=== PATIENT | female | born 1960 | race Caucasian/White ===

== ENCOUNTER 2023-06-08 11:41 | Outpatient (REF) | payer BC, SELFPAY ==
[2023-06-08 12:27] LABS: MANUAL DIFF FLAG NO
[2023-06-08 12:37] LABS: Basophils Percent Auto 0.3 % (0-2); Eosinophils Absolute Auto 0.4 X10*3/uL (0.0-0.4); Eosinophils Percent Auto 3.9 % (0-4); Hematocrit 27.9 % (37.0-47.0); Hemoglobin 8.1 g/dl (12.0-16.0); Imm Gran Abs Auto 0.04 X10*3/uL (0.00-0.03); Imm Gran Pct Auto 0.4 % (0.0-0.4); Lymphocytes Absolute Auto 0.9 X10*3/uL (1.2-4.9); Lymphocytes Percent Auto 9.9 % (20-40); Mean Corpuscular Hemoglobin 22.1 pg (27.0-33.0); Mean Platelet Volume 8.7 fL (9.4-12.3); Monocytes Absolute Auto 0.5 X10*3/uL (0.1-1.2); Neutrophils Absolute Auto 7.6 x10*3/uL (2.0-8.3); Neutrophils Percent Auto 80.5 % (45-73); Platelet Count 403 X10*3/uL (160-400); Red Blood Count 3.67 X10*6/uL (4.20-5.50); Red Cell Distribution Width 17.8 % (11.0-16.0); White Blood Count 9.5 X10*3/uL (4.8-10.8)
[2023-06-08 13:32] LABS: Parathyroid Hormone Intact < 4.0 pg/mL (8.7-77.1)
[2023-06-08 13:33] LABS: Anion Gap 14 (12-20); Blood Urea Nitrogen 41 mg/dL (9-16); Calcium 10.4 mg/dL (8.4-10.2); Carbon Dioxide 29 mmol/L (22-29); Chloride 102 mmol/L (96-108); Estimated Glomerular Filt Rate 17; Iron 35 mcg/dL (30-160); Percent Iron Saturation 15 % (15-50); Phosphorus 4.1 mg/dL (2.7-4.5); Potassium 4.5 mmol/L (3.3-5.1); Sodium 140 mmol/L (135-145); Total Iron Binding Capacity 237 mcg/dL (228-428); Unsaturated Iron Binding 202 ug/dL
[2023-06-08 13:41] LABS: Vitamin D 25-OH Total 33.6 ng/mL (>30)
== END 2023-06-08 11:42 | disposition home or self-care (01) ==
LOC: HO.HKASLDS 11:41
PROVIDERS: Visit Provider Internal Medicine Nephrology
DX: N18.4 Chronic kidney disease, stage 4 (severe) (principal)
CPT/HCPCS: 36415; 80051; 82306; 82310; 82565; 83540; 83970; 84100; 84520; 85025

== ENCOUNTER 2023-06-10 10:42 | Outpatient (AMB) | payer BC, SELFPAY ==
[2023-06-10 11:14] VITALS: BP 130/70; PULSE 87; O2SAT 96; BMI 39.9
--- NOTE | 2023-06-10 11:14 | HO.NEPHOV ---
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 She is still closely followed up by endocrinology. She denies any uremic symptoms. She denies any chest pain, shortness of breath, paroxysmal nocturnal dyspnea, orthopnea, pedal edema, hematuria, orthostatic symptoms, nausea, vomiting, diarrhea. Her appetite is good. Her weights have been stable. She avoids nonsteroidal anti-inflammatory medications and maintain good hydration. Her blood pressure has been at goal. She has a functioning AV fistula. [facility] Medical History (Updated 06/10/23 @ 11:46 by Bryan Green MD) AVF (arteriovenous fistula) Hypertension CKD (chronic kidney disease) stage 4, GFR 15-29 ml/min Surgical History (Updated 06/10/23 @ 11:20 by Andria Kay MA) History of thyroidectomy Family History (Updated 06/10/23 @ 11:20 by Andria Kay MA) Mother COPD (chronic obstructive pulmonary disease) Social History (Updated 06/10/23 @ 11:21 by Andria Kay MA) Alcohol intake: current Comment: Socially Patient Tobacco Use Status: Former Tobacco user Physical Exam Vital Signs: Last Vital Signs Pulse 87 06/10/23 11:14 BP 130/70 06/10/23 11:14 Pulse Ox 96 06/10/23 11:14 Oxygen Delivery Method Room Air 06/10/23 11:14 BMI result Body Mass Index 39.9 Const General: comfortable and no acute distress Orientation/consciousness: patient oriented x3 HEENT Head: Yes normocephalic Mouth: Normal oral and palatal mucosa present Eyes EOM: EOMs intact bilaterally Neck Neck: Yes supple Resp Auscultation: clear to auscultation bilaterally Cardio Jugular venous distension: no JVD Rate: regular rate GI Palpation (GI): Soft to palpation Auscultation: normal bowel sounds General: Yes no CVA tenderness Back/Spine/Pelvis Back: no CVA tenderness Skin General skin exam: no rashes or lesions noted Neuro General: patient oriented x3 and moves all extremities Extrem General: Yes no pedal edema Results Reviewed Nephrology Results: Hgb 8.1 g/dl (12.0-16.0) L 06/08/23 WBC 9.5 X10*3/uL (4.8-10.8) 06/08/23 Plt Count 403 X10*3/uL (160-400) H 06/08/23 Sodium 140 mmol/L (135-145) 06/08/23 Potassium 4.5 mmol/L (3.3-5.1) 06/08/23 Chloride 102 mmol/L (96-108) 06/08/23 Carbon Dioxide 29 mmol/L (22-29) 06/08/23 BUN 41 mg/dL (9-16) H 06/08/23 Creatinine 2.79 mg/dL (0.5-1.4) H 06/08/23 Calcium 10.4 mg/dL (8.4-10.2) H 06/08/23 Phosphorus 4.1 mg/dL (2.7-4.5) 06/08/23 PTH Intact < 4.0 pg/mL (8.7-77.1) L 06/08/23 Assessment & Plan Assessment & Plan (1) CKD (chronic kidney disease) stage 4, GFR 15-29 ml/min: Code(s): N18.4 - Chronic kidney disease, stage 4 (severe) Category: Medical (2) Anemia in chronic kidney disease (CKD): Code(s): N18.9 - Chronic kidney disease, unspecified; D63.1 - Anemia in chronic kidney disease Category: Medical Qualifiers: Chronic kidney disease stage: stage 4 (severe) Qualified Code(s): N18.4 - Chronic kidney disease, stage 4 (severe); D63.1 - Anemia in chronic kidney disease (3) Iron deficiency: Code(s): E61.1 - Iron deficiency Category: Medical Plan Carmelina has advanced chronic kidney disease at baseline for a long time. Her renal functions are currently stable. She does not have any uremic symptoms. Her blood pressure has been at goal. Her volume status is optimal. She has a functioning AV fistula. She has anemia of chronic kidney disease. She will be a candidate for intravenous iron and or Procrit based on evolving data. She could cut back on her calcium and vitamin-D. She is on statins. Her metabolic acidosis is well controlled on oral sodium bicarbonate, dose of which could be adjusted based on repeat blood work. I did not make any other medication changes today. Follow-up blood work ordered. Answered all questions. Orders: Orders IRON PROFILE 6 Weeks E61.1 - Iron deficiency, N18.4 - Chronic kidney disease, stage 4 (severe), D63.1 - Anemia in chronic kidney disease Complete Blood Count Auto Diff 6 Weeks E61.1 - Iron deficiency, N18.4 - Chronic kidney disease, stage 4 (severe), D63.1 - Anemia in chronic kidney disease Electrolytes 6 Weeks E61.1 - Iron deficiency, N18.4 - Chronic kidney disease, stage 4 (severe), D63.1 - Anemia in chronic kidney disease Creatinine 6 Weeks E61.1 - Iron deficiency, N18.4 - Chronic kidney disease, stage 4 (severe), D63.1 - Anemia in chronic kidney disease Blood Urea Nitrogen 6 Weeks E61.1 - Iron deficiency, N18.4 - Chronic kidney disease, stage 4 (severe), D63.1 - Anemia in chronic kidney disease Calcium 6 Weeks E61.1 - Iron deficiency, N18.4 - Chronic kidney disease, stage 4 (severe), D63.1 - Anemia in chronic kidney disease Coding Level of Care Code Est Pt Level 4 (34687) Diagnoses CKD (chronic kidney disease) stage 4, GFR 15-29 ml/min N18.4 Anemia in stage 4 chronic kidney disease N18.4; D63.1 Chronic kidney disease stage: stage 4 (severe) Iron deficiency E61.1
== END 2023-06-10 11:57 | disposition home or self-care (01) ==
PROVIDERS: PCP Pediatrics; Visit Provider Internal Medicine Nephrology
DX: N18.4 Chronic kidney disease, stage 4 (severe) (principal); D63.1 Anemia in chronic kidney disease; E61.1 Iron deficiency
CPT/HCPCS: 99214

== ENCOUNTER → 2023-06-10 10:42 | Outpatient (BNVA) | payer BC, SELFPAY | PROVIDERS: PCP Pediatrics; Visit Provider Internal Medicine Nephrology ==

== ENCOUNTER 2023-09-13 09:48 | Outpatient (REF) | payer BC, SELFPAY ==
[2023-09-13 11:12] LABS: MANUAL DIFF FLAG NO
[2023-09-13 11:16] LABS: Basophils Absolute Auto 0.1 X10*3/uL (0.0-0.2); Basophils Percent Auto 0.6 % (0-2); Eosinophils Absolute Auto 0.7 X10*3/uL (0.0-0.4); Eosinophils Percent Auto 8.3 % (0-4); Hematocrit 28.2 % (37.0-47.0); Hemoglobin 8.2 g/dl (12.0-16.0); Imm Gran Abs Auto 0.03 X10*3/uL (0.00-0.03); Imm Gran Pct Auto 0.4 % (0.0-0.4); Lymphocytes Absolute Auto 1.2 X10*3/uL (1.2-4.9); Lymphocytes Percent Auto 15.3 % (20-40); Mean Corpuscular HGB Conc 29.1 g/dl (31.0-35.0); Mean Corpuscular Hemoglobin 22.3 pg (27.0-33.0); Mean Corpuscular Volume 76.8 fL (80.0-98.0); Mean Platelet Volume 8.9 fL (9.4-12.3); Monocytes Absolute Auto 0.5 X10*3/uL (0.1-1.2); Monocytes Percent Auto 6.3 % (2-11); Neutrophils Absolute Auto 5.5 x10*3/uL (2.0-8.3); Neutrophils Percent Auto 69.1 % (45-73); Platelet Count 332 X10*3/uL (160-400); Red Blood Count 3.67 X10*6/uL (4.20-5.50); Red Cell Distribution Width 17.1 % (11.0-16.0); White Blood Count 7.9 X10*3/uL (4.8-10.8)
[2023-09-13 11:43] LABS: Anion Gap 14 (12-20); Blood Urea Nitrogen 40 mg/dL (9-16); Calcium 8.9 mg/dL (8.4-10.2); Carbon Dioxide 27 mmol/L (22-29); Chloride 105 mmol/L (96-108); Estimated Glomerular Filt Rate 16; Iron 20 mcg/dL (30-160); Percent Iron Saturation 8 % (15-50); Potassium 4.4 mmol/L (3.3-5.1); Sodium 142 mmol/L (135-145); Total Iron Binding Capacity 250 mcg/dL (228-428); Unsaturated Iron Binding 230 ug/dL
== END 2023-09-13 09:49 | disposition home or self-care (01) ==
LOC: HO.WFDLDS 09:48
PROVIDERS: Visit Provider Internal Medicine Nephrology
DX: E61.1 Iron deficiency (principal); N18.4 Chronic kidney disease, stage 4 (severe); D63.1 Anemia in chronic kidney disease
CPT/HCPCS: 36415; 80051; 82310; 82565; 83540; 84520; 85025

== ENCOUNTER 2023-09-16 10:51 | Outpatient (AMB) | payer BC, SELFPAY ==
[2023-09-16 10:57] VITALS: BP 130/64; PULSE 85; O2SAT 95; BMI 39.9
--- NOTE | 2023-09-16 10:57 | HO.NEPHOV_ITS ---
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 She is still closely followed up by endocrinology. She denies any uremic symptoms. She denies any chest pain, shortness of breath, paroxysmal nocturnal dyspnea, orthopnea, pedal edema, hematuria, orthostatic symptoms, nausea, vomiting, diarrhea. Her appetite is good. Her weights have been stable. She avoids nonsteroidal anti-inflammatory medications and maintain good hydration. Her blood pressure has been at goal. She has a functioning AV fistula. [facility] Medical History (Updated 06/10/23 @ 11:46 by Bryan Green MD) AVF (arteriovenous fistula) Hypertension CKD (chronic kidney disease) stage 4, GFR 15-29 ml/min Surgical History History of thyroidectomy Family History Mother COPD (chronic obstructive pulmonary disease) Social History Alcohol intake: current Comment: Socially Patient Tobacco Use Status: Former Tobacco user Review of Systems Const All systems reviewed & are unremarkable except as noted in HPI and below Physical Exam Vital Signs: Last Vital Signs Pulse 85 09/16/23 10:57 BP 130/64 09/16/23 10:57 Pulse Ox 95 09/16/23 10:57 Oxygen Delivery Method Room Air 09/16/23 10:57 BMI result Body Mass Index 39.9 Const General: comfortable and no acute distress Orientation/consciousness: patient oriented x3 HEENT Head: Yes normocephalic Mouth: Normal oral and palatal mucosa present Eyes EOM: EOMs intact bilaterally Neck Neck: Yes supple Resp Auscultation: clear to auscultation bilaterally Cardio Jugular venous distension: no JVD Rate: regular rate GI Palpation (GI): Soft to palpation Auscultation: normal bowel sounds General: Yes no CVA tenderness Back/Spine/Pelvis Back: no CVA tenderness Skin General skin exam: no rashes or lesions noted Neuro General: patient oriented x3 and moves all extremities Extrem General: Yes no pedal edema Results Reviewed Nephrology Results: Hgb 8.2 g/dl (12.0-16.0) L 09/13/23 WBC 7.9 X10*3/uL (4.8-10.8) 09/13/23 Plt Count 332 X10*3/uL (160-400) 09/13/23 Sodium 142 mmol/L (135-145) 09/13/23 Potassium 4.4 mmol/L (3.3-5.1) 09/13/23 Chloride 105 mmol/L (96-108) 09/13/23 Carbon Dioxide 27 mmol/L (22-29) 09/13/23 BUN 40 mg/dL (9-16) H 09/13/23 Creatinine 2.95 mg/dL (0.5-1.4) H 09/13/23 Calcium 8.9 mg/dL (8.4-10.2) 09/13/23 Phosphorus 4.1 mg/dL (2.7-4.5) 06/08/23 PTH Intact < 4.0 pg/mL (8.7-77.1) L 06/08/23 Assessment & Plan Assessment & Plan (1) CKD (chronic kidney disease) stage 4, GFR 15-29 ml/min: Code(s): N18.4 - Chronic kidney disease, stage 4 (severe) Category: Medical (2) Anemia in chronic kidney disease (CKD): Code(s): N18.9 - Chronic kidney disease, unspecified; D63.1 - Anemia in chronic kidney disease Category: Medical Qualifiers: Chronic kidney disease stage: stage 4 (severe) Qualified Code(s): N18.4 - Chronic kidney disease, stage 4 (severe); D63.1 - Anemia in chronic kidney disease (3) Iron deficiency: Code(s): E61.1 - Iron deficiency Category: Medical Plan Carmelina has advanced chronic kidney disease at baseline for a long time. Her renal functions are currently stable. She does not have any uremic symptoms. Her blood pressure has been at goal. Her volume status is optimal. She has a functioning AV fistula. She has anemia of chronic kidney disease. She will be a candidate for intravenous iron and or Procrit based on evolving data. She is on statins. Her metabolic acidosis is well controlled on oral sodium bicarbonate, dose of which could be adjusted based on repeat blood work. I did not make any other medication changes today. Follow-up blood work ordered. Answered all questions. Orders: Orders Complete Blood Count Auto Diff 3 Months D63.1 - Anemia in chronic kidney disease, E61.1 - Iron deficiency, N18.4 - Chronic kidney disease, stage 4 (severe) Creatinine Today D63.1 - Anemia in chronic kidney disease, E61.1 - Iron deficiency, N18.4 - Chronic kidney disease, stage 4 (severe) Blood Urea Nitrogen Today D63.1 - Anemia in chronic kidney disease, E61.1 - Iron deficiency, N18.4 - Chronic kidney disease, stage 4 (severe) Electrolytes Today D63.1 - Anemia in chronic kidney disease, E61.1 - Iron deficiency, N18.4 - Chronic kidney disease, stage 4 (severe) Coding Level of Care Code Est Pt Level 4 (93023) Diagnoses CKD (chronic kidney disease) stage 4, GFR 15-29 ml/min N18.4 Anemia in stage 4 chronic kidney disease N18.4; D63.1 Chronic kidney disease stage: stage 4 (severe) Iron deficiency E61.1
== END 2023-09-16 11:34 | disposition home or self-care (01) ==
PROVIDERS: PCP Pediatrics; Visit Provider Internal Medicine Nephrology
DX: N18.4 Chronic kidney disease, stage 4 (severe) (principal); D63.1 Anemia in chronic kidney disease; E61.1 Iron deficiency
CPT/HCPCS: 99214

== ENCOUNTER → 2023-09-16 10:51 | Outpatient (BNVA) | payer BC, SELFPAY | PROVIDERS: PCP Pediatrics; Visit Provider Internal Medicine Nephrology ==

== ENCOUNTER 2023-12-07 11:46 | Outpatient (REF) | payer BC, SELFPAY ==
[2023-12-07 14:08] LABS: MANUAL DIFF FLAG NO
[2023-12-07 14:18] LABS: Basophils Absolute Auto 0.1 X10*3/uL (0.0-0.2); Basophils Percent Auto 0.8 % (0-2); Eosinophils Absolute Auto 1.2 X10*3/uL (0.0-0.4); Eosinophils Percent Auto 13.5 % (0-4); Hematocrit 27.3 % (37.0-47.0); Hemoglobin 7.7 g/dl (12.0-16.0); Imm Gran Abs Auto 0.03 X10*3/uL (0.00-0.03); Imm Gran Pct Auto 0.3 % (0.0-0.4); Lymphocytes Absolute Auto 1.2 X10*3/uL (1.2-4.9); Lymphocytes Percent Auto 13.1 % (20-40); Mean Corpuscular HGB Conc 28.2 g/dl (31.0-35.0); Mean Corpuscular Hemoglobin 20.9 pg (27.0-33.0); Mean Corpuscular Volume 74.2 fL (80.0-98.0); Monocytes Absolute Auto 0.5 X10*3/uL (0.1-1.2); Monocytes Percent Auto 5.9 % (2-11); Neutrophils Percent Auto 66.4 % (45-73); Platelet Count 334 X10*3/uL (160-400); Red Blood Count 3.68 X10*6/uL (4.20-5.50); Red Cell Distribution Width 20.2 % (11.0-16.0)
== END 2023-12-07 11:47 | disposition home or self-care (01) ==
LOC: HO.WFDLDS 11:46
PROVIDERS: Visit Provider Internal Medicine Nephrology
DX: E61.1 Iron deficiency (principal); N18.4 Chronic kidney disease, stage 4 (severe); D63.1 Anemia in chronic kidney disease
CPT/HCPCS: 36415; 85025

== ENCOUNTER 2023-12-09 09:24 | Outpatient (AMB) | payer BC, SELFPAY ==
--- NOTE | 2023-12-09 09:37 | HO.NEPHOV ---
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 She is still closely followed up by endocrinology. She denies any uremic symptoms. She denies any chest pain, shortness of breath, paroxysmal nocturnal dyspnea, orthopnea, pedal edema, hematuria, orthostatic symptoms, nausea, vomiting, diarrhea. Her appetite is good. Her weights have been stable. She avoids nonsteroidal anti-inflammatory medications and maintain good hydration. Her blood pressure has been at goal. She has a functioning AV fistula. She has not had any iron infusions as ordered [facility] Medical History (Updated 06/10/23 @ 11:46 by Bryan Green MD) AVF (arteriovenous fistula) Hypertension CKD (chronic kidney disease) stage 4, GFR 15-29 ml/min Surgical History History of thyroidectomy Family History Mother COPD (chronic obstructive pulmonary disease) Social History Alcohol intake: current Comment: Socially Patient Tobacco Use Status: Former Tobacco user Review of Systems Const All systems reviewed & are unremarkable except as noted in HPI and below Physical Exam Const Other: Pale General: comfortable and no acute distress Orientation/consciousness: patient oriented x3 HEENT Head: Yes normocephalic Mouth: Normal oral and palatal mucosa present Eyes EOM: EOMs intact bilaterally Neck Neck: Yes supple Resp Auscultation: clear to auscultation bilaterally Cardio Jugular venous distension: no JVD Rate: regular rate Heart sounds: Murmur heart sound present GI Palpation (GI): Soft to palpation Auscultation: normal bowel sounds General: Yes no CVA tenderness Back/Spine/Pelvis Back: no CVA tenderness Skin General skin exam: no rashes or lesions noted Neuro General: patient oriented x3 and moves all extremities Extrem Other: AVF General: Yes no pedal edema Results Reviewed Nephrology Results: Hgb 7.7 g/dl (12.0-16.0) L 12/07/23 WBC 9.0 X10*3/uL (4.8-10.8) 12/07/23 Plt Count 334 X10*3/uL (160-400) 12/07/23 Sodium 142 mmol/L (135-145) 09/13/23 Potassium 4.4 mmol/L (3.3-5.1) 09/13/23 Chloride 105 mmol/L (96-108) 09/13/23 Carbon Dioxide 27 mmol/L (22-29) 09/13/23 BUN 40 mg/dL (9-16) H 09/13/23 Creatinine 2.95 mg/dL (0.5-1.4) H 09/13/23 Calcium 8.9 mg/dL (8.4-10.2) 09/13/23 Phosphorus 4.1 mg/dL (2.7-4.5) 06/08/23 PTH Intact < 4.0 pg/mL (8.7-77.1) L 06/08/23 Assessment & Plan Assessment & Plan (1) CKD (chronic kidney disease) stage 4, GFR 15-29 ml/min: Code(s): N18.4 - Chronic kidney disease, stage 4 (severe) Category: Medical (2) Anemia in chronic kidney disease (CKD): Code(s): N18.9 - Chronic kidney disease, unspecified; D63.1 - Anemia in chronic kidney disease Category: Medical Qualifiers: Chronic kidney disease stage: stage 4 (severe) Qualified Code(s): N18.4 - Chronic kidney disease, stage 4 (severe); D63.1 - Anemia in chronic kidney disease (3) Iron deficiency: Code(s): E61.1 - Iron deficiency Category: Medical Plan Carmelina has advanced chronic kidney disease at baseline for a long time. Her renal functions are currently stable. She does not have any uremic symptoms. Her blood pressure has been at goal. Her volume status is optimal. She has a functioning AV fistula. She has anemia of chronic kidney disease. She will be a candidate for intravenous iron and or Procrit based on evolving data. She is on statins. Her metabolic acidosis is well controlled on oral sodium bicarbonate. I reduced it to 650 mg daily. I did not make any other medication changes today. Follow-up blood work ordered. Answered all questions Orders: Orders Blood Urea Nitrogen 3 Months D63.1 - Anemia in chronic kidney disease, E61.1 - Iron deficiency, N18.4 - Chronic kidney disease, stage 4 (severe) Electrolytes 3 Months D63.1 - Anemia in chronic kidney disease, E61.1 - Iron deficiency, N18.4 - Chronic kidney disease, stage 4 (severe) Complete Blood Count Auto Diff 3 Months D63.1 - Anemia in chronic kidney disease, E61.1 - Iron deficiency, N18.4 - Chronic kidney disease, stage 4 (severe) IRON PROFILE 3 Months D63.1 - Anemia in chronic kidney disease, E61.1 - Iron deficiency, N18.4 - Chronic kidney disease, stage 4 (severe) Creatinine 3 Months D63.1 - Anemia in chronic kidney disease, E61.1 - Iron deficiency, N18.4 - Chronic kidney disease, stage 4 (severe) Calcium 3 Months D63.1 - Anemia in chronic kidney disease, E61.1 - Iron deficiency, N18.4 - Chronic kidney disease, stage 4 (severe) Ferritin 3 Months D63.1 - Anemia in chronic kidney disease, E61.1 - Iron deficiency, N18.4 - Chronic kidney disease, stage 4 (severe) Coding Level of Care Code Est Pt Level 4 (99750) Diagnoses CKD (chronic kidney disease) stage 4, GFR 15-29 ml/min N18.4 Anemia in stage 4 chronic kidney disease N18.4; D63.1 Chronic kidney disease stage: stage 4 (severe) Iron deficiency E61.1
[2023-12-09 09:38] VITALS: BP 134/60; PULSE 87; O2SAT 97; BMI 40.7
== END 2023-12-09 09:59 | disposition home or self-care (01) ==
PROVIDERS: PCP Pediatrics; Visit Provider Internal Medicine Nephrology
DX: N18.4 Chronic kidney disease, stage 4 (severe) (principal); D63.1 Anemia in chronic kidney disease; E61.1 Iron deficiency
CPT/HCPCS: 99214

== ENCOUNTER → 2023-12-09 09:24 | Outpatient (BNVA) | payer BC, SELFPAY | PROVIDERS: PCP Pediatrics; Visit Provider Internal Medicine Nephrology ==

== ENCOUNTER 2024-02-01 07:30 | Outpatient (RCR) | payer BC, SELFPAY ==
[2024-01-04 07:33] VITALS: BP 139/61; PULSE 78; RESP 14; TEMP 36.4; O2SAT 97
[2024-01-04] MEDS: Iron Sucrose Complex 200 MG/10 ML VIAL IVPUSH (07:45)
[2024-01-04] MEDS: 0.9 % Sodium Chloride Flush 10 ML SYRINGE 5 ML IVFLUSH (07:56)
[2024-01-11 07:23] VITALS: BP 157/62; PULSE 79; RESP 16; TEMP 36.8; O2SAT 94
[2024-01-11] MEDS: Iron Sucrose Complex 200 MG/10 ML VIAL IVPUSH (07:30)
[2024-01-18 07:28] VITALS: BP 151/61; PULSE 77; RESP 18; TEMP 36.4; O2SAT 97
[2024-01-18] MEDS: Iron Sucrose Complex 200 MG/10 ML VIAL IVPUSH (07:36)
[2024-01-25 08:08] VITALS: BP 139/43; PULSE 72; RESP 18; TEMP 36.2
[2024-01-25] MEDS: Iron Sucrose Complex 200 MG/10 ML VIAL IVPUSH (08:21)
[2024-02-01 07:41] VITALS: BP 129/61; PULSE 63; RESP 14; TEMP 37.2; O2SAT 98
[2024-02-01] MEDS: Iron Sucrose Complex 200 MG/10 ML VIAL IVPUSH (07:52)
[2024-02-01] MEDS: 0.9 % Sodium Chloride Flush 10 ML SYRINGE 5 ML IVFLUSH (07:59)
== END 2024-02-01 08:05 | disposition home or self-care (01) ==
LOC: HO.INF 07:30
PROVIDERS: PCP Pediatrics; Visit Provider Internal Medicine Nephrology
DX: E61.1 Iron deficiency (principal)
CPT/HCPCS: 96374; J1756

== ENCOUNTER 2024-04-18 14:22 | Outpatient (REF) | payer BC, SELFPAY ==
--- OUTSIDE RECORDS SUMMARY | 2024-04-18 15:56 | XMS_ITS | Clinical Summary ---
Author Organization [facility] it Address [address] [place] [address] Care Team Providers Care [employer] Open Stack Administrator Name Role Phone Dony Biggs MD Primary Care Provider [phone] Allergies Active Allergy Reactions Criticality Noted Date [...] Site/Laterality Comments OTHER SURGICAL HISTORY 1984 PROCEDURE: [place] DILATION & CURETTAGE DX&/THER NONOBSTETRIC Medical History Medical History Date Comments CKD (chronic kidney disease) stage 4, GFR 15-29 ml/min (CMS/HCC) 04/14/2018 DX:CKD (chronic kidney dise ase) stage 4, GFR 15-29 ml/min ([facility]) Vitamin D deficiency 08/29/2020 DX:Vitamin D deficiency Thyroid cancer, medullary ca rcinoma ([facility]/HCC) 11/06/2020 DX:Thyroid cancer, medullary carcinoma (HCC) Family [...] AM EDT Office Visit Adult Medicine - [place] [address] [place] [address] Dony Biggs MD [address] [place] [address] Health Maintenance Due Date Last Done Comments [...] Breast cancer risk category Low (<15%) Result [facility] Dony Biggs MD IMG XR PROCEDURES Final Result * Colonoscopy (10/15/2020) [facility] Colonoscopy no interpretation , abstracted Anatomical Region Laterality Modality Other Result [facility] Historical Provider HEALTH MAINTENANCE Final Result * Lipid panel (09/27/2020) [facility] LDL/HDL Ratio 2 0 - 4 Triglycerides 130 0 - 150 mg/dL Cholesterol 138 0 - 200 mg/dL HDL 70 >=40 mg/dL LDL Cholesterol 42 0 - 100 mg/dL Blood Venous blood specimen / Unknown Result [facility] Historical Provider LAB BLOOD ORDERABLES Gely l Result * Cervical Cancer Screening: HPV (08/04/2018) [facility] Cervical Cancer Screening: HPV abstracted, negative Result [facility] Historical Provider HEALTH MAINTENANCE Final Result from Last 3 Months or Most Recently Relevant to Health Maintenance Care Teams [employer] Open Stack Administrator Relationship Specialty Start Date End Date Dony Biggs MD [address] [place] [id number] PCP - General Internal Medicine 09/12/20
--- OUTSIDE RECORDS SUMMARY | 2024-04-18 15:56 | XMS_ITS | Clinical Summary ---
Author Organization [facility] Address [address] [place] [address] Phone Care Team Providers Care Doctor Of Podiatry Name Role Phone Babar Biggs MD Primary [...] patient's age to complete this topic [place] [address] Care Teams Doctor Of Podiatry Relationship Specialty Start Date End Date Babar Biggs MD PCP - General Internal Medicine 12/03/20
[2024-04-18 17:45] LABS: MANUAL DIFF FLAG NO
[2024-04-18 17:56] LABS: Basophils Percent Auto 0.3 % (0-2); Eosinophils Absolute Auto 0.5 X10*3/uL (0.0-0.4); Eosinophils Percent Auto 5.7 % (0-4); Hematocrit 33.7 % (37.0-47.0); Hemoglobin 10.2 g/dl (12.0-16.0); Imm Gran Abs Auto 0.06 X10*3/uL (0.00-0.03); Imm Gran Pct Auto 0.6 % (0.0-0.4); Lymphocytes Absolute Auto 1.5 X10*3/uL (1.2-4.9); Lymphocytes Percent Auto 15.5 % (20-40); Mean Corpuscular HGB Conc 30.3 g/dl (31.0-35.0); Mean Corpuscular Volume 79.3 fL (80.0-98.0); Monocytes Absolute Auto 0.6 X10*3/uL (0.1-1.2); Monocytes Percent Auto 6.8 % (2-11); Neutrophils Absolute Auto 6.7 x10*3/uL (2.0-8.3); Neutrophils Percent Auto 71.1 % (45-73); Platelet Count 288 X10*3/uL (160-400); Red Blood Count 4.25 X10*6/uL (4.20-5.50); Red Cell Distribution Width 17.7 % (11.0-16.0); White Blood Count 9.5 X10*3/uL (4.8-10.8)
[2024-04-18 18:22] LABS: Anion Gap 14 (12-20); Blood Urea Nitrogen 38 mg/dL (9-16); Calcium 8.8 mg/dL (8.4-10.2); Carbon Dioxide 23 mmol/L (22-29); Chloride 109 mmol/L (96-108); Estimated Glomerular Filt Rate 19; Iron 29 mcg/dL (30-160); Percent Iron Saturation 14 % (15-50); Potassium 4.9 mmol/L (3.3-5.1); Sodium 141 mmol/L (135-145); Total Iron Binding Capacity 214 mcg/dL (228-428); Unsaturated Iron Binding 185 ug/dL
[2024-04-18 18:26] LABS: Parathyroid Hormone Intact 22.6 pg/mL (8.7-77.1)
[2024-04-18 18:31] LABS: Ferritin 166 ng/mL (10-250)
== END 2024-04-18 14:23 | disposition home or self-care (01) ==
LOC: HO.HKASLDS 14:22
PROVIDERS: PCP Pediatrics; Visit Provider Internal Medicine Nephrology
DX: E87.20 Acidosis, unspecified (principal); E61.1 Iron deficiency; N18.4 Chronic kidney disease, stage 4 (severe); D63.1 Anemia in chronic kidney disease
CPT/HCPCS: 36415; 80051; 82306; 82310; 82565; 82728; 83540; 83970; 84520; 85025

== ENCOUNTER 2024-04-18 14:22 | Outpatient (AMB) | payer BC, SELFPAY ==
--- NOTE | 2024-04-18 14:36 | HO.NEPHOV ---
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 She is still closely followed up by endocrinology. She denies any uremic symptoms. She denies any chest pain, shortness of breath, paroxysmal nocturnal dyspnea, orthopnea, pedal edema, hematuria, orthostatic symptoms, nausea, vomiting, diarrhea. Her appetite is good. Her weights have been stable. She avoids nonsteroidal anti-inflammatory medications and maintain good hydration. Her blood pressure has been at goal. She has a functioning AV fistula. She has not had any iron infusions as ordered [facility] Medical History (Updated 04/18/24 @ 14:47 by Bryan Green MD) AVF (arteriovenous fistula) Hypertension CKD (chronic kidney disease) stage 4, GFR 15-29 ml/min Surgical History History of thyroidectomy Family History Mother COPD (chronic obstructive pulmonary disease) Social History Alcohol intake: current Comment: Socially Patient Tobacco Use Status: Former Tobacco user Review of Systems Const All systems reviewed & are unremarkable except as noted in HPI and below Physical Exam Vital Signs: Last Vital Signs Pulse 75 04/18/24 14:38 BP 134/72 04/18/24 14:38 Pulse Ox 97 04/18/24 14:38 Oxygen Delivery Method Room Air 04/18/24 14:38 BMI result Body Mass Index 41.8 Const General: comfortable and no acute distress Orientation/consciousness: patient oriented x3 HEENT Head: Yes normocephalic Mouth: Normal oral and palatal mucosa present Eyes EOM: EOMs intact bilaterally Neck Neck: Yes supple Resp Auscultation: clear to auscultation bilaterally Cardio Jugular venous distension: no JVD Rate: regular rate GI Palpation (GI): Soft to palpation Auscultation: normal bowel sounds General: Yes no CVA tenderness Back/Spine/Pelvis Back: no CVA tenderness Skin General skin exam: no rashes or lesions noted Neuro General: patient oriented x3 and moves all extremities Extrem General: Yes no pedal edema Results Reviewed Nephrology Results: Hgb 7.7 g/dl (12.0-16.0) L 12/07/23 WBC 9.0 X10*3/uL (4.8-10.8) 12/07/23 Plt Count 334 X10*3/uL (160-400) 12/07/23 Sodium 142 mmol/L (135-145) 09/13/23 Potassium 4.4 mmol/L (3.3-5.1) 09/13/23 Chloride 105 mmol/L (96-108) 09/13/23 Carbon Dioxide 27 mmol/L (22-29) 09/13/23 BUN 40 mg/dL (9-16) H 09/13/23 Creatinine 2.95 mg/dL (0.5-1.4) H 09/13/23 Calcium 8.9 mg/dL (8.4-10.2) 09/13/23 Phosphorus 4.1 mg/dL (2.7-4.5) 06/08/23 PTH Intact < 4.0 pg/mL (8.7-77.1) L 06/08/23 Assessment & Plan Assessment & Plan (1) CKD (chronic kidney disease) stage 4, GFR 15-29 ml/min: Code(s): N18.4 - Chronic kidney disease, stage 4 (severe) Category: Medical (2) Anemia in chronic kidney disease (CKD): Code(s): N18.9 - Chronic kidney disease, unspecified; D63.1 - Anemia in chronic kidney disease Category: Medical Qualifiers: Chronic kidney disease stage: stage 4 (severe) Qualified Code(s): N18.4 - Chronic kidney disease, stage 4 (severe); D63.1 - Anemia in chronic kidney disease (3) Iron deficiency: Code(s): E61.1 - Iron deficiency Category: Medical (4) Metabolic acidosis: Code(s): E87.20 - Acidosis, unspecified Category: Medical Plan Carmelina has advanced chronic kidney disease at baseline for a long time. Her renal functions had been stable. She does not have any uremic symptoms. Her blood pressure has been at goal. Her volume status is optimal. She has a functioning AV fistula. She has anemia of chronic kidney disease. She will be a candidate for intravenous iron and or Procrit based on evolving data. She is on statins. Her metabolic acidosis is well controlled on oral sodium bicarbonate 650 mg daily. I did not make any other medication changes today. Follow-up blood work ordered. Answered all questions Orders: Orders Complete Blood Count Auto Diff Today D63.1 - Anemia in chronic kidney disease, E61.1 - Iron deficiency, E87.20 - Acidosis, unspecified, N18.4 - Chronic kidney disease, stage 4 (severe) IRON PROFILE Today D63.1 - Anemia in chronic kidney disease, E61.1 - Iron deficiency, E87.20 - Acidosis, unspecified, N18.4 - Chronic kidney disease, stage 4 (severe) Parathyroid Hormone Intact Today D63.1 - Anemia in chronic kidney disease, E61.1 - Iron deficiency, E87.20 - Acidosis, unspecified, N18.4 - Chronic kidney disease, stage 4 (severe) Creatinine Today D63.1 - Anemia in chronic kidney disease, E61.1 - Iron deficiency, E87.20 - Acidosis, unspecified, N18.4 - Chronic kidney disease, stage 4 (severe) Electrolytes Today D63.1 - Anemia in chronic kidney disease, E61.1 - Iron deficiency, E87.20 - Acidosis, unspecified, N18.4 - Chronic kidney disease, stage 4 (severe) Calcium Today D63.1 - Anemia in chronic kidney disease, E61.1 - Iron deficiency, E87.20 - Acidosis, unspecified, N18.4 - Chronic kidney disease, stage 4 (severe) Complete Blood Count Auto Diff 3 Months D63.1 - Anemia in chronic kidney disease, E61.1 - Iron deficiency, E87.20 - Acidosis, unspecified, N18.4 - Chronic kidney disease, stage 4 (severe) Creatinine 3 Months D63.1 - Anemia in chronic kidney disease, E61.1 - Iron deficiency, E87.20 - Acidosis, unspecified, N18.4 - Chronic kidney disease, stage 4 (severe) Electrolytes 3 Months D63.1 - Anemia in chronic kidney disease, E61.1 - Iron deficiency, E87.20 - Acidosis, unspecified, N18.4 - Chronic kidney disease, stage 4 (severe) Calcium 3 Months D63.1 - Anemia in chronic kidney disease, E61.1 - Iron deficiency, E87.20 - Acidosis, unspecified, N18.4 - Chronic kidney disease, stage 4 (severe) Ferritin Today D63.1 - Anemia in chronic kidney disease, E61.1 - Iron deficiency, E87.20 - Acidosis, unspecified, N18.4 - Chronic kidney disease, stage 4 (severe) Vitamin D 25-OH Total Today D63.1 - Anemia in chronic kidney disease, E61.1 - Iron deficiency, E87.20 - Acidosis, unspecified, N18.4 - Chronic kidney disease, stage 4 (severe) Blood Urea Nitrogen Today D63.1 - Anemia in chronic kidney disease, E61.1 - Iron deficiency, E87.20 - Acidosis, unspecified, N18.4 - Chronic kidney disease, stage 4 (severe) Blood Urea Nitrogen 3 Months D63.1 - Anemia in chronic kidney disease, E61.1 - Iron deficiency, E87.20 - Acidosis, unspecified, N18.4 - Chronic kidney disease, stage 4 (severe) Coding Level of Care Code Est Pt Level 4 (18180) Diagnoses CKD (chronic kidney disease) stage 4, GFR 15-29 ml/min N18.4 Anemia in stage 4 chronic kidney disease N18.4; D63.1 Chronic kidney disease stage: stage 4 (severe) Iron deficiency E61.1 Metabolic acidosis E87.20
[2024-04-18 14:38] VITALS: BP 134/72; PULSE 75; O2SAT 97; BMI 41.8
--- OUTSIDE RECORDS SUMMARY | 2024-04-18 15:22 | XMS_ITS | Clinical Summary ---
Author Organization [facility] Address [address] [place] [address] Phone Care Team Providers Care Supervisory Cbp Officer Name Role Phone Babar Biggs MD Primary Care Provider + Allergies Active Allergy Reactions Criticality Noted Date Comments Penicillins Swelling 05/20/2020 Medications warfarin (COUMADIN) 3 MG tablet TAKE 1 2 TABLETS BY MOUTH DAILY DIRECTED BY THE [facility] 1 Active LORazepam (ATIVAN) 0.5 MG tablet Take 1 tablet by mouth 2 (two) times a day if needed 1 Active prednisoLONE acetate (PRED FORTE) 1 % ophthalmic suspension Administer 1 drop into the left eye 4 (four) times a day 1 Active cholecalciferol (VITAMIN D-3) 125 MCG (5000 UT) capsule Take 5,000 Units by mouth per week Active levothyroxine (SYNTHROID, LEVOTHROID) 125 MCG tablet Take 1 tablet by mouth 1 (one) time each day 1 Active Calcium Citrate-Vitamin D (CITRACAL MAXIMUM PO) Take 1 tablet by mouth 2 (two) times a day Active levothyroxine (SYNTHROID, LEVOTHROID) 137 MCG tablet Take 137 mcg by mouth 3 Active Eliquis 5 MG tablet Take 5 mg by mouth 3 Active sodium bicarbonate 650 MG tabletIndication s:Stage 3b chronic kidney disease (HCC) Take 1 tablet (650 mg total) by mouth in the morning and 1 tablet (650 mg total) in the evening. 180 tablet 3 4 04/19/19 25 Active atorvastatin (LIPITOR) 10 MG tabletIndication s:Stage 3b chronic kidney disease (HCC) TAKE 1 TABLET BY MOUTH 1 TIME EACH DAY. 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 Metabolic acidosis 05/20/2020 Proteinuria 05/20/2020 Anemia in chronic kidney disease 05/20/2020 Chronic kidney disease, stage 4 (severe) 021 Resolved Problems Problem Noted Date Diagnosed Date Resolved Date Stage 3b chronic kidney disease 12/03/2020 01/09/2023 Anemia 05/20/2020 01/09/2023 Stage 5 chronic kidney disease 05/20/2020 01/09/2023 Family History Medical History Relation Comments Hypertension Father Relation Status Comments Father Alive Mother Social History Tobacco Use Types Packs/Day Years Used Date Smoking Tobacco: Former Cigarettes Q uit: 04/15/1990 Smokeless Tobacco: Former Comments:Smoking History Inf o:Every day Alcohol Use Standard Drinks/Week Comments Yes 0 (1 standard drink = 0.6 oz pure alcohol) Alcoholic Drinks/day: Occasional social drink Comments Unknown Sex and Gender Information Value Date Recorded Sex Assigned at Not on file Legal Sex Female 4:53 PM EST Gender Identity Not on file Sexual Orientation Not on file Last Filed Vital Signs Vital Sign Reading Time Taken Comments Blood Pressure 138/70 01/11/2023 11:14 AM EST Pulse 79 01/11/2023 11:14 AM EST Temperature - - Respiratory Rate - - Oxygen Saturation 98% 01/11/2023 11:14 AM EST Inhaled Oxygen Concentration - - Weight 99.5 kg (219 lb 6.4 oz) 01/11/2023 11:14 AM EST Height 157.5 cm (5' 2 ) 01/11/2023 11:14 AM EST Body Mass Index 40.13 01/11/2023 11:14 AM EST Plan of Treatment Health Maintenance Due Date Last Done Comments Breast Cancer Screening 1960 Pneumococcal Vaccine: Pediatrics (0 to 5 Years) and At-Risk Patients (6 to 64 Years) (1 of 2 - PCV) 1966 Colorectal Cancer Screening: Annual FOBT 2009 Colorectal Cancer Screening: Colonoscopy 2009 Colorectal Cancer Screening: Sigmoidoscopy 2009 Influenza Vaccine (#1) 2023 0, 12/24/2016 Hepatitis B Vaccine Aged Out No longe r eligible based on patient's age to complete this topic [place] [address] [place] [address] Care Teams Supervisory Cbp Officer Relationship Specialty Start Date End Date Babar Biggs MD PCP - General Internal Medicine 12/03/20
--- OUTSIDE RECORDS SUMMARY | 2024-04-18 15:22 | XMS_ITS | Clinical Summary ---
Author Organization [facility] it Address [address] [place] [address] Care Team Providers Care Lump Machine Operator Name Role Phone Dony Biggs MD Primary Care Provider Allergies Active Allergy Reactions Criticality Noted Date Comments Penicillin G Medium 12/24/2016 Swollen hands Medications apixaban (Eliquis) 5 mg tablet Take 5 mg by mouth 2 times daily. 12/08/2023 Active atorvastatin (LIPITOR) 10 mg tablet Take 1 tablet (10 mg total) by mouth 1 (one) time each day. 12/08/2023 Active CALCIUM CITRATE-VITAMIN D3 ORAL Take 2 Tablets by mouth 2 times daily. Active levothyroxine (SYNTHROID, LEVOTHROID) 137 mcg tablet Take 137 mcg by mouth daily. Active SODIUM BICARBONATE ORAL Take 650 mg by mouth 2 times daily. Active Active Problems Problem Noted Date Diagnosed Date Hypercholesterolemia 12/08/2023 Murmur 12/04/2021 Overview (02/10/2024): 12/20. Refused echo Left carotid bruit 01/06/2021 Overview (02/10/2024): 01/19. Refused u/s 12/20 refused Thyroid cancer, medullary carcinoma 11/06/2020 Overview (02/10/2024): Metastatic to left node Surgery 01/19 Vitamin D deficiency 08/29/2020 Papanicolaou smear of cervix with atypical squamous cells of undetermined significance (ASC-US) 08/05/2018 Overview (02/10/2024): History: PAP 07/29/2018: ASCUS; High Risk HPV DNA negative 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 05/31 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 05/31 CKD (chronic kidney disease) stage 4, GFR 15-29 ml/min 04/14/2018 Overview (02/10/2024): [facility] Depression 12/24/2016 Immunizations Name Administration Dates Next Due Influenza Quadravalent, MDCK , 0.5ml, with preservative (Flucelvax) 6mo and older 12/01/2019,12/24/2016 Influenza trivalent, 0.5mL, preservative free (Fluarix; FluLaval; Fluzone) ages 6mo and older (Afluria) 3 years and older 11/02/2023 Moderna SARS-CoV-2 COVID-19, mRNA, LNP-S, preservative free 11/02/2023 Tdap Tetanus diptheria acell ular pertussis (Boostrix; Adacel) 7yo and older 09/27/2020 Surgical History Surgery Date Site/Laterality Comments OTHER SURGICAL HISTORY 1984 PROCEDURE: TN DILATION & CURETTAGE DX&/THER NONOBSTETRIC Medical History Medical History Date Comments CKD (chronic kidney disease) stage 4, GFR 15-29 ml/min (CMS/HCC) 04/14/2018 DX:CKD (chronic kidney dise ase) stage 4, GFR 15-29 ml/min ([facility]) Vitamin D deficiency 08/29/2020 DX:Vitamin D deficiency Thyroid cancer, medullary ca rcinoma ([facility]/HCC) 11/06/2020 DX:Thyroid cancer, medullary carcinoma (HCC) Family History Medical History Relation Name Comments COPD Mother Breast cancer Neg Hx Relation Name Status Comments Daughter Lorie Alive Father Alive Mother Social History Tobacco Use Types Packs/Day Years Used Date Smoking Tobacco: Former Cigarettes 0.5 20 0 03/01/1979 - 03/01/1999 Smokeless Tobacco: Never Alcohol Use Standard Drinks/Week Comments No 0 (1 standard drink = 0.6 oz pur e alcohol) Comments Unknown Sex and Gender Information Value Date Recorded Sex Assigned at Not on file Legal Sex Female 5:46 AM EST Gender Identity Not on file Sexual Orientation Not on file Obstetrics History Last Filed Vital Signs Vital Sign Reading Time Taken Comments Blood Pressure 130/62 12/08/2023 8:40 AM EDT Pulse 79 12/08/2023 8:31 AM EDT Temperature - - Respiratory Rate - - Oxygen Saturation - - Inhaled Oxygen Concentration - - Weight 101 kg (223 lb 6.4 oz) 12/08/2023 8:31 AM EDT Height 160 cm (5' 3 ) 05/31/2023 1:05 PM EDT Body Mass Index 39.57 05/31/2023 1:05 PM EDT Plan of Treatment Upcoming Encounters Date Type Department Care Team (Late st Contact Info) Description 06/07/2024 8:30 AM EDT Office Visit Adult Medicine - [place] [address] [place] [address] Dony Biggs MD [address] [place] [address] Health Maintenance Due Date Last Done Comments Pneumococcal Vaccine: 50+ Years (1 of 2 - PCV) 1979 Pneumococcal Vaccine: Pediatrics (0 to 5 Years) and At-Risk Patients (6 to 64 Years) (1 of 2 - PCV) 1979 Zoster Vaccines (1 of 2) 1979 Depression Screening 02/07/2022 HIV Screening 02/07/2022 Hepatitis C Screening 02/07/2022 Social Influencers of Health Screening 02/07/2022 Breast Cancer Screening 02/20/2023 02/21/20 21, 02/06/2020 Cervical Cancer Screening: HPV 08/05/2023 08/04/2018 COVID-19 Vaccine ( - 2023-2 5 season) 2023 11/02/2023, 05/09/2020, 04/17/2020 Cholesterol Screening (Lipid Panel) 09/27/2025 09/27/2020 DTaP,Tdap,and Td Vaccines (2 - Td or Tdap) 09/27/2030 09/27/2020 Colorectal Cancer Screening: Colonoscopy 10/15/2030 10/15/2020 RSV Immunization Patients 60 + Years Old (1 - 1-dose 75+ series) 2035 Influenza Vaccine Completed 11/02/2023, 12/01/2019, 12/24/2016 HIB Vaccines Aged Out No longer eligi ble based on patient's age to complete this topic HPV Vaccines Aged Out No longer eligi ble based on patient's age to complete this topic Hepatitis A Vaccines Aged Out No long er eligible based on patient's age to complete this topic Hepatitis B Vaccines Aged Out No long er eligible based on patient's age to complete this topic IPV Vaccines Aged Out No longer eligi ble based on patient's age to complete this topic MMR Vaccines Aged Out No longer eligi ble based on patient's age to complete this topic Meningococcal ACWY Vaccine Aged Out N o longer eligible based on patient's age to complete this topic Meningococcal B Vacine Aged Out No lo nger eligible based on patient's age to complete this topic RSV Immunization Patients Under 20 months Aged Out No longer eligible b ased on patient's age to complete this topic Varicella Vaccines Aged Out No longer eligible based on patient's age to complete this topic Procedures Procedure Name Priority Date/Time Associated Diagnosis Comments SCREENING MAMMOGRAPHY BI 2-VIEW BREAST INC CAD Routine 02/20/2021 8:23 AM EST Encounter for screening mammogram for malignant neoplasm of breast COLONOSCOPY Routine 10/15/2020 LIPID PANEL Routine 09/27/2020 HPV Routine 08/04/2018 from Last 3 Months or Most Recently Relevant to Health Maintenance Results * SCREENING MAMMOGRAPHY BI 2-VIEW BREAST INC CAD (02/20/2021 8:23 AM EST) Anatomical Region Laterality Modality Radiographic Soraida ging 02/06/2020 8:30 AM EST Narrative 02/20/2021 10:23 AM EST This is a summary report. The complete report is available in the patient's medical record. If you cannot access the medical record, please contact the sending organization for a detailed fax or copy. Full field digital screening mammography, using both 2D mammography and tomosynthesis, reviewed with CAD and compared to previous. ??The breasts are composed of fatty and fibroglandular tissue. ??No suspicious mass, architectural distortion or suspicious calcifications are identified. IMPRESSION: : No mammographic evidence of malignancy. BIRADS 1-Negative; N. 5 year breast cancer risk assessment 1.6 % Lifetime breast cancer risk assessment 8.1 % Breast cancer risk category Low (<15%) Procedure Note Artemio Leyva MD - 02/17/2022 This is a summary report. The complete report is available in thepatient's medical record. If you cannot access the medical record, pleasecontact the sending organization for a detailed fax or copy. Full field digital screening mammography, using both 2D mammography andtomosynthesis, reviewed with CAD and compared to previous. The breastsare composed of fatty and fibroglandular tissue. No suspicious mass,architectural distortion or suspicious calcifications are identified. IMPRESSION: : No mammographic evidence of malignancy. BIRADS 1-Negative; N. 5 year breast cancer risk assessment 1.6 % Lifetime breast cancer risk assessment 8.1 % Breast cancer risk category Low (<15%) Result [facility] Dony Biggs MD IMG XR PROCEDURES Final Result * Colonoscopy (10/15/2020) [facility] Colonoscopy no interpretation , abstracted Anatomical Region Laterality Modality Other Result [facility] Historical Provider HEALTH MAINTENANCE Final Result * Lipid panel (09/27/2020) [facility] LDL/HDL Ratio 2 0 - 4 Triglycerides 130 0 - 150 mg/dL Cholesterol 138 0 - 200 mg/dL HDL 70 >=40 mg/dL LDL Cholesterol 42 0 - 100 mg/dL Blood Venous blood specimen / Unknown Result [facility] Historical Provider LAB BLOOD ORDERABLES Gely l Result * Cervical Cancer Screening: HPV (08/04/2018) [facility] Cervical Cancer Screening: HPV abstracted, negative Result [facility] Historical Provider HEALTH MAINTENANCE Final Result from Last 3 Months or Most Recently Relevant to Health Maintenance Care Teams Lump Machine Operator Relationship Specialty Start Date End Date Dony Biggs MD [address] [place] [id number] PCP - General Internal Medicine 09/12/20
== END 2024-04-18 15:31 | disposition home or self-care (01) ==
PROVIDERS: PCP Pediatrics; Visit Provider Internal Medicine Nephrology
DX: N18.4 Chronic kidney disease, stage 4 (severe) (principal); D63.1 Anemia in chronic kidney disease; E61.1 Iron deficiency; E87.20 Acidosis, unspecified
CPT/HCPCS: 99214

== ENCOUNTER 2024-08-08 07:30 | Outpatient (RCR) | payer BC, SELFPAY ==
[2024-07-11 07:23] VITALS: BP 159/63; PULSE 71; RESP 16; TEMP 37; O2SAT 97
[2024-07-11] MEDS: Iron Sucrose Complex 200 MG in 0.9 % Sodium Chloride 100 ML 440 MG IV (07:32)
[2024-07-18 07:33] VITALS: BP 156/65; PULSE 73; RESP 20; TEMP 36; O2SAT 96
[2024-07-18] MEDS: Iron Sucrose Complex 200 MG in 0.9 % Sodium Chloride 100 ML 440 MG IV (07:40)
[2024-07-25 07:32] VITALS: BP 147/73; PULSE 73; RESP 16; TEMP 36.7; O2SAT 96
[2024-07-25] MEDS: Iron Sucrose Complex 200 MG in 0.9 % Sodium Chloride 100 ML 440 MG IV (07:40)
[2024-08-01 07:33] VITALS: BP 140/76; PULSE 70; RESP 16; TEMP 36.9; O2SAT 96
[2024-08-01] MEDS: Iron Sucrose Complex 200 MG in 0.9 % Sodium Chloride 100 ML 440 MG IV (07:39)
[2024-08-08 07:30] VITALS: BP 148/64; PULSE 73; RESP 16; TEMP 36.2; O2SAT 97
[2024-08-08] MEDS: Iron Sucrose Complex 200 MG in 0.9 % Sodium Chloride 100 ML 440 MG IV (07:35)
== END 2024-08-08 07:54 | disposition home or self-care (01) ==
LOC: HO.INF 07:30
PROVIDERS: Visit Provider Internal Medicine Nephrology
DX: E61.1 Iron deficiency (principal)
CPT/HCPCS: 96365; J1756

== ENCOUNTER 2024-08-17 11:19 | Outpatient (REF) | payer BC, SELFPAY ==
--- OUTSIDE RECORDS SUMMARY | 2024-08-17 12:49 | XMS_ITS | Clinical Summary ---
Author Organization [facility] Address [address] [place] [address] Phone Care Team Providers Care Traveling Clerk Name Role Phone Babar Biggs MD Primary [...] Take 5 mg by mouth 3 Active atorvastatin (LIPITOR) 10 MG tabletIndicatio ns:Stage 3b chronic kidney disease (HCC) TAKE 1 [...] Comments Breast Cancer Screening 1960 Pneumococcal Vaccine: 50+ Years (1 of 2 - PCV) 1979 Colorectal Cancer Screening: Annual FOBT 2009 Colorectal Cancer Screening: Colonoscopy 2009 Colorectal Cancer Screening: Sigmoidoscopy 2009 Influenza Vaccine (Season Ended) 2024 12/01/2019, 12/24/2016 Hepatitis B Vaccine Aged Out No longe r eligible based on patient's age to complete this topic Insurance [facility] Care Teams Traveling Clerk Relationship Specialty Start Date End Date Babar Biggs MD PCP - General Internal Medicine 12/03/20
[2024-08-17 13:43] LABS: MANUAL DIFF FLAG NO
[2024-08-17 13:45] LABS: Basophils Absolute Auto 0.1 X10*3/uL (0.0-0.2); Basophils Percent Auto 0.8 % (0-2); Eosinophils Absolute Auto 0.7 X10*3/uL (0.0-0.4); Eosinophils Percent Auto 9.1 % (0-4); Hematocrit 36.3 % (37.0-47.0); Hemoglobin 10.7 g/dl (12.0-16.0); Imm Gran Abs Auto 0.02 X10*3/uL (0.00-0.03); Imm Gran Pct Auto 0.3 % (0.0-0.4); Lymphocytes Absolute Auto 1.3 X10*3/uL (1.2-4.9); Lymphocytes Percent Auto 15.9 % (20-40); Mean Corpuscular HGB Conc 29.5 g/dl (31.0-35.0); Mean Corpuscular Hemoglobin 24.7 pg (27.0-33.0); Mean Corpuscular Volume 83.6 fL (80.0-98.0); Monocytes Absolute Auto 0.4 X10*3/uL (0.1-1.2); Monocytes Percent Auto 5.5 % (2-11); Neutrophils Absolute Auto 5.5 x10*3/uL (2.0-8.3); Neutrophils Percent Auto 68.4 % (45-73); Platelet Count 260 X10*3/uL (160-400); Red Blood Count 4.34 X10*6/uL (4.20-5.50); Red Cell Distribution Width 16.3 % (11.0-16.0)
[2024-08-17 14:07] LABS: Anion Gap 13 (12-20); Blood Urea Nitrogen 40 mg/dL (9-16); Carbon Dioxide 26 mmol/L (22-29); Chloride 107 mmol/L (96-108); Estimated Glomerular Filt Rate 19; Iron 48 mcg/dL (30-160); Percent Iron Saturation 24 % (15-50); Potassium 4.4 mmol/L (3.3-5.1); Sodium 142 mmol/L (135-145); Total Iron Binding Capacity 203 mcg/dL (228-428); Unsaturated Iron Binding 155 ug/dL
[2024-08-17 14:22] LABS: Ferritin 348 ng/mL (10-250)
== END 2024-08-17 11:20 | disposition home or self-care (01) ==
LOC: HO.WFDLDS 11:19
PROVIDERS: Visit Provider Internal Medicine Nephrology
DX: E61.1 Iron deficiency (principal); E87.20 Acidosis, unspecified; D63.1 Anemia in chronic kidney disease; N18.4 Chronic kidney disease, stage 4 (severe); I10 Essential (primary) hypertension
CPT/HCPCS: 36415; 80051; 82310; 82565; 82728; 83540; 84520; 85025

== ENCOUNTER 2024-08-22 10:25 | Outpatient (AMB) | payer BC, SELFPAY ==
--- NOTE | 2024-08-22 10:37 | HO.NEPHOV ---
Vital Signs 08/22/24 10:39 Height 5 ft 3 in Weight 273 lb BMI 48.4 BP 137/78 Blood Pressure Location Rt brachial Position Sitting Pulse 79 Pulse Source Pulse Oximeter Pulse Oximetry (%) 97 Oxygen Delivery Method Room Air Intake Visit Reasons: 3mon follow-up w/labs-LVM Intake Note: Patient here for a follow-up. Drying Tunnel Operator Required: No Accompanied by: Self / Same As Patient Allergies Penicillins Allergy (Verified 08/22/24 10:39) Unknown Do you need a note to return to daycare/school/sports/work: No HPI Comments Details: Carmelina was seen in follow-up of her chronic kidney disease. She is still closely followed up by endocrinology. She denies any uremic symptoms. She denies any chest pain, shortness of breath, paroxysmal nocturnal dyspnea, orthopnea, pedal edema, hematuria, orthostatic symptoms, nausea, vomiting, diarrhea. Her appetite is good. Her weights have been stable. She avoids nonsteroidal anti-inflammatory medications and maintain good hydration. Her blood pressure has been at goal. She has a functioning AV fistula. She has not had any iron infusions as ordered [facility] Medical History AVF (arteriovenous fistula) Hypertension CKD (chronic kidney disease) stage 4, GFR 15-29 ml/min Surgical History History of thyroidectomy Family History Mother COPD (chronic obstructive pulmonary disease) Social History Alcohol intake: current Comment: Socially Patient Tobacco Use Status: Former Tobacco user Review of Systems Const All systems reviewed & are unremarkable except as noted in HPI and below Physical Exam Vital Signs: Last Vital Signs Pulse 79 08/22/24 10:39 BP 137/78 08/22/24 10:39 Pulse Ox 97 08/22/24 10:39 Oxygen Delivery Method Room Air 08/22/24 10:39 BMI result Body Mass Index 48.4 Const General: comfortable and no acute distress Orientation/consciousness: patient oriented x3 HEENT Head: Yes normocephalic Mouth: Normal oral and palatal mucosa present Eyes EOM: EOMs intact bilaterally Neck Neck: Yes supple Resp Auscultation: clear to auscultation bilaterally Cardio Jugular venous distension: no JVD Rate: regular rate GI Palpation (GI): Soft to palpation Auscultation: normal bowel sounds General: Yes no CVA tenderness Back/Spine/Pelvis Back: no CVA tenderness Skin General skin exam: no rashes or lesions noted Neuro General: patient oriented x3 and moves all extremities Extrem General: Yes no pedal edema Results Reviewed Nephrology Results: Hgb, (12.0-16.0) 10.7 g/dl L 08/17/24 WBC, (4.8-10.8) 8.0 X10*3/uL 08/17/24 Plt Count, (160-400) 260 X10*3/uL 08/17/24 Sodium, (135-145) 142 mmol/L 08/17/24 Potassium, (3.3-5.1) 4.4 mmol/L 08/17/24 Chloride, (96-108) 107 mmol/L 08/17/24 Carbon Dioxide, (22-29) 26 mmol/L 08/17/24 BUN, (9-16) 40 mg/dL H 08/17/24 Creatinine, (0.5-1.4) 2.49 mg/dL H 08/17/24 Calcium, (8.4-10.2) 9.0 mg/dL 08/17/24 PTH Intact, (8.7-77.1) 22.6 pg/mL 04/18/24 Assessment & Plan Assessment & Plan (1) CKD (chronic kidney disease) stage 4, GFR 15-29 ml/min: Code(s): N18.4 - Chronic kidney disease, stage 4 (severe) Category: Medical (2) Metabolic acidosis: Code(s): E87.20 - Acidosis, unspecified Category: Medical (3) Anemia in chronic kidney disease (CKD): Code(s): N18.9 - Chronic kidney disease, unspecified; D63.1 - Anemia in chronic kidney disease Category: Medical Qualifiers: Chronic kidney disease stage: stage 4 (severe) Qualified Code(s): N18.4 - Chronic kidney disease, stage 4 (severe); D63.1 - Anemia in chronic kidney disease Plan Carmelina has advanced chronic kidney disease at baseline for a long time. Her renal functions had been stable. She does not have any uremic symptoms. Her blood pressure has been at goal. Her volume status is optimal. She has a functioning AV fistula. She has anemia of chronic kidney disease. She will be a candidate for intravenous iron and or Procrit based on evolving data. She is on statins. Her metabolic acidosis is well controlled on oral sodium bicarbonate 650 mg daily. I did not make any other medication changes today. Follow-up blood work ordered. Answered all questions Orders: Orders Blood Urea Nitrogen 4 Months D63.1 - Anemia in chronic kidney disease, E87.20 - Acidosis, unspecified, N18.4 - Chronic kidney disease, stage 4 (severe) Calcium 4 Months D63.1 - Anemia in chronic kidney disease, E87.20 - Acidosis, unspecified, N18.4 - Chronic kidney disease, stage 4 (severe) Creatinine 4 Months D63.1 - Anemia in chronic kidney disease, E87.20 - Acidosis, unspecified, N18.4 - Chronic kidney disease, stage 4 (severe) Electrolytes 4 Months D63.1 - Anemia in chronic kidney disease, E87.20 - Acidosis, unspecified, N18.4 - Chronic kidney disease, stage 4 (severe) Parathyroid Hormone Intact 4 Months D63.1 - Anemia in chronic kidney disease, E87.20 - Acidosis, unspecified, N18.4 - Chronic kidney disease, stage 4 (severe) Complete Blood Count Auto Diff 4 Months D63.1 - Anemia in chronic kidney disease, E87.20 - Acidosis, unspecified, N18.4 - Chronic kidney disease, stage 4 (severe) Coding Level of Care Code Est Pt Level 4 (33753) Diagnoses CKD (chronic kidney disease) stage 4, GFR 15-29 ml/min N18.4 Metabolic acidosis E87.20 Anemia in stage 4 chronic kidney disease N18.4; D63.1 Chronic kidney disease stage: stage 4 (severe)
[2024-08-22 10:39] VITALS: BP 137/78; PULSE 79; O2SAT 97; BMI 48.4
--- OUTSIDE RECORDS SUMMARY | 2024-08-22 11:35 | XMS_ITS | Clinical Summary ---
Author Organization [facility] [address] [facility] lding Address [address] [place] [address] Phone Care Team Providers Care Deliverer Merchandise Name Role Phone Dony Biggs MD Primary Care Provider [phone] Allergies Active Allergy Reactions Criticality Noted Date Comments Penicillin G Medium 12/24/2016 Swollen hands Medications CALCIUM CITRATE-VITAMIN D3 ORAL Take 2 Tablets by mouth 2 times daily. Active levothyroxine (SYNTHROID, LEVOTHROID) 137 mcg tablet Take 137 mcg by mouth daily. Active SODIUM BICARBONATE ORAL Take 650 mg by mouth 2 times daily. Active apixaban (Eliquis) 2.5 mg tablet Take 1 tablet (2.5 mg total) by mouth 2 (two) times a day. 180 each 1 06/07/2024 Active atorvastatin (LIPITOR) 10 mg tablet TAKE 1 TABLET BY MOUTH EVERY DAY 90 tablet 07/13/2024 Active Active Problems Problem Noted Date Diagnosed Date History of DVT of lower extremity 06/07/2024 Overview (06/07/2024): 2019. Unprovoked Heme 05/18. Nephritis and sedentary--continue anticoagulation until very active and kidney issues resolve. Colon cancer screening 06/07/2024 Overview (06/07/2024): 10/19--neg Morbid obesity with BMI of 4 0.0-44.9, adult (CMS/HCC V24, CMS/HCC V28) 06/07/2024 Hypercholesterolemia 12/08/2023 Murmur 12/04/2021 Overview (06/07/2024): 12/20. Refused echo 06/23. Refused echo. Left carotid bruit 01/06/2021 Overview (02/10/2024): 01/19. Refused u/s 12/20 refused Thyroid cancer, medullary ca rcinoma ([facility] V24, [facility] V28) 11/06/2020 Overview (02/10/2024): Metastatic to left node Surgery 01/19 Vitamin D deficiency 08/29/2020 Papanicolaou smear of cervix with atypical squamous cells of undetermined significance (ASC-US) 08/05/2018 Overview (02/10/2024): History: PAP 07/29/2018: ASCUS; High Risk HPV DNA negative 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 05/31 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 05/31 CKD (chronic kidney disease) stage 4, GFR 15-29 ml/min ([facility] V24, [facility] V28) 04/14/2018 Overview (02/10/2024): [facility] Depression 12/24/2016 Encounters Date Type Department Care Team Description 08/03/2024 Telephone Adult Medicine [address] [address] Dony Biggs MD Referral 07/26/2024 Telephone Adult Medicine [address] [address] Dony Biggs MD Referral 06/07/2024 8:30 AM EDT Office Visit Adult Medicine [address] [address] Dony Biggs MD Hypercholesterolemia (Primary Dx); History of DVT of lower extremity; Encounter for hepatitis C screening test for low risk patient; Murmur; Colon cancer screening; Morbid obesity with BMI of 40.0-44.9, adult ([facility] V24, [facility] V28) from Last 3 Months Immunizations Name Administration Dates Next Due Influenza [...] Site/Laterality Comments OTHER SURGICAL HISTORY 1984 PROCEDURE: UT DILATION & CURETTAGE DX&/THER NONOBSTETRIC Medical History Medical History Date Comments CKD (chronic kidney disease) stage 4, GFR 15-29 ml/min ([facility] V24, [facility] V28) 04/14/2018 DX:CKD (chronic kidney disea se) stage 4, GFR 15-29 ml/min ([facility]) Vitamin D deficiency 08/29/2020 DX:Vitamin D deficiency Thyroid cancer, medullary ca rcinoma ([facility] V24, [facility] V28) 11/06/2020 DX:Thyroid cancer, medullar y carcinoma (HCC) Family History Medical History Relation Name Comments COPD Mother Breast cancer Neg Hx Relation Name Status Comments Daughter Lorie Alive Father Alive Mother Social History Tobacco Use Types Packs/Day Years Used Date Smoking Tobacco: Former Cigarettes 0.5 20 0 03/01/1979 - 03/01/1999 Smokeless Tobacco: Never Tobacco Cessation:Counseling Given: Not Answered Alcohol Use Standard Drinks/Week Comments No 0 (1 standard drink = 0.6 oz pur e alcohol) Comments No Sex and Gender Information Value Date Recorded Sex Assigned at Not on file Legal Sex Female 5:46 AM EST Gender Identity Not on file Sexual Orientation Not on file Obstetrics History Last Filed Vital Signs Vital Sign Reading Time Taken Comments Blood Pressure 136/75 06/07/2024 8:28 AM EDT Pulse 77 06/07/2024 8:28 AM EDT Temperature 36.3 C (97.4 F) 06/07/2024 8:28 AM EDT Respiratory Rate - - Oxygen Saturation - - Inhaled Oxygen Concentration - - Weight 107 kg (236 lb 9.6 oz) 06/07/2024 8:28 AM EDT Height 160 cm (5' 3 ) 06/07/2024 8:28 AM EDT Body Mass Index 41.91 06/07/2024 8:28 AM EDT Plan of Treatment Health Maintenance Due Date Last Done Comments Pneumococcal Vaccine: Pediatrics (0 to 5 Years) and At-Risk Patients (6 to 64 Years) (1 of 2 - PCV) 1979 Zoster Vaccines (1 of 2) 1979 Cervical Cancer Screening: Pap Smear 08/05/2019 08/04/2018, 08/04/2018, 07/29/2018 RSV Immunization Adult Patients (1 - Risk 60-74 years 1-dose series) 2020 Depression Screening 02/07/2022 HIV Screening 02/07/2022 Hepatitis C Screening 02/07/2022 Social Influencers of Health Screening 02/07/2022 Breast Cancer Screening 02/20/2023 02/20/2021, 02/05 COVID-19 Vaccine ( season) 2023 11/02/2023, 12/26/2021, 11/27/2020, Additional history exists Cholesterol Screening (Lipid Panel) 09/27/2025 09/27/2020 DTaP,Tdap,and Td Vaccines (2 - Td or Tdap) 09/27/2030 09/27/2020 Colorectal Cancer Screening: Colonoscopy 10/15/2030 10/15/2020 Influenza Vaccine Completed 11/02/2023, , 11/22/2020, Additional history exists HIB Vaccines Aged Out No longer eligi [...] age to complete this topic Meningococcal B Vaccine Aged Out No l onger eligible based on patient's age to complete this topic Pneumococcal Vaccine: 50+ Years Discontinued RSV Immunization Patients Under 20 months Aged Out No longer eligible based on patient's age to complete this topic Varicella Vaccines Aged Out No longer eligible based on patient's age to complete this topic Procedures Procedure Name Priority Date/Time Associated Diagnosis Comments SCREENING MAMMOGRAPHY BI 2-VIEW BREAST INC CAD Routine 02/20/2021 8:23 AM EST Encounter for screening mammogram for malignant neoplasm of breast HM COLONOSCOPY Routine 10/15/2020 LIPID PANEL Routine 09/27/2020 HM HPV Routine 08/04/2018 from Last 3 Months [...] with CAD and compared to previous. The breasts are composed of fatty and fibroglandular tissue. No suspicious mass, architectural distortion or suspicious calcifications [...] % Breast cancer risk category Low (<15%) Dony Biggs MD IMG XR PROCEDURES Final Result * Colonoscopy (10/15/2020) Colonoscopy no interpretation , abstracted Anatomical Region Laterality Modality Other Historical Provider HEALTH MAINTENANCE Final Result * Lipid panel (09/27/2020) Pathologist [facility] LDL/HDL Ratio 2 0 - 4 Triglycerides 130 0 - 150 mg/dL Cholesterol 138 0 - 200 mg/dL HDL 70 >=40 mg/dL LDL Cholesterol 42 0 - 100 mg/dL Blood Venous blood specimen / Unknown Historical Provider LAB BLOOD ORDERABLES Gely l Result * Cervical Cancer Screening: HPV (08/04/2018) Cervical Cancer Screening: HPV abstracted, negative Historical Provider HEALTH MAINTENANCE Final Result from Last 3 Months or Most Recently Relevant to Health Maintenance Insurance [facility] Care Teams Deliverer Merchandise Relationship Specialty Start Date End Date Dony Biggs MD [address] [place] [id number] PCP - General Internal Medicine 09/12/20
== END 2024-08-22 11:10 | disposition home or self-care (01) ==
PROVIDERS: PCP Pediatrics; Visit Provider Internal Medicine Nephrology
DX: N18.4 Chronic kidney disease, stage 4 (severe) (principal); E87.20 Acidosis, unspecified; D63.1 Anemia in chronic kidney disease
CPT/HCPCS: 99214

== ENCOUNTER 2024-12-26 14:46 | Outpatient (REF) | payer BC, SELFPAY ==
[2024-12-26 18:05] LABS: MANUAL DIFF FLAG NO
[2024-12-26 18:25] LABS: Anion Gap 13 (12-20); Blood Urea Nitrogen 45 mg/dL (9-16); Calcium 8.7 mg/dL (8.4-10.2); Carbon Dioxide 26 mmol/L (22-29); Chloride 107 mmol/L (96-108); Estimated Glomerular Filt Rate 19; Potassium 4.6 mmol/L (3.3-5.1); Sodium 141 mmol/L (135-145)
[2024-12-26 18:51] LABS: Parathyroid Hormone Intact 41.1 pg/mL (8.7-77.1)
[2024-12-26 19:01] LABS: Hematocrit 36.4 % (37.0-47.0); Hemoglobin 11.0 g/dl (12.0-16.0); Imm Gran Abs Auto 0.03 X10*3/uL (0.00-0.03); Imm Gran Pct Auto 0.4 % (0.0-0.4); Lymphocytes Absolute Auto 1.5 X10*3/uL (1.2-4.9); Mean Corpuscular HGB Conc 30.2 g/dl (31.0-35.0); Mean Corpuscular Hemoglobin 25.4 pg (27.0-33.0); Mean Corpuscular Volume 84.1 fL (80.0-98.0); NRBC Abs Auto 0.000 X10*3/uL (0.0-0.012); NRBC Pct Auto 0.0 /100WBC (0.0-0.2); Platelet Count 309 X10*3/uL (160-400); Red Blood Count 4.33 X10*6/uL (4.20-5.50); White Blood Count 8.1 X10*3/uL (4.8-10.8)
--- OUTSIDE RECORDS SUMMARY | 2024-12-26 19:12 | XMS_ITS | Encounter Summary ---
Author Organization [facility] Address [address] [place] [address] Care Team Providers Care Flatwork Washer Name Role Phone Dony Biggs MD Primary Care Provider [phone] Reason for Visit * Reason Onset Date Comments Referral 07/26/2024 Encounter Details Date Type Department Care Team ([facility] st Contact Info) Description 07/26/2024 Telephone Adult Medicine [facility] [address] [place] [address] Dony Biggs MD [address] [place] [address] Social History Tobacco Use Types Packs/Day Years [...] on file Sexual Orientation Not on file documented as of this encounter Progress Notes * Perla Blum - 10/23/2024 9:48 AM EDT error * Perla Merino MA - 09/13/2024 3:42 PM EDT Images from the original note were not included. Ambulatory referral to Nephrology (Order [id number]) Outpatient Referral Pending Date: 08/23/2024 Department: Adult Medicine [facility] Pended By: Jeana Astudillo MA Authorizing: Dony Biggs MD Pending Order Information This order is pended Future Order Information Expires 07/27/2025 Order History Outpatient Date/Time Action Taken User Additional Information 07/27/24907 Pend Perla Merino MA 08/23/241634 Pend Jeana Atsudillo MA Order Details Frequency Duration Priority Order Class None None Routine Outgoing Referral Comments FIRST and LAST NAME of SPECIALIST PATIENT is seeing: Dr Bryan Green npi [id number] What specialty is this? nephrology DIAGNOSIS Patient is being seen for (Not a body part or a procedure): n18.4 Have you seen this SPECIALIST for this PROBLEM/DX before? If YES, when? Yes. Have you checked REVIEW or the APPT DESK to see if this referral has already been done or has visits left? no Is this visit: Follow Up Address of Specialist: [address] [place] [address] Phone # of Specialist: [phone] Fax #: (if applicable): [phone] Associated Diagnoses ICD-10-CM ICD-9-CM Chronic kidney disease, stage IV (severe) (CMS/HCC V24, CMS/HCC V28) - Primary N18.4 585.4 Reprint Order Requisition Ambulatory referral to Nephrology (Order #[id number]) on 08/23/24 Order Provider Info Office phone Pager E-mail Ordering User Jeana Astudillo MA -- -- -- Authorizing Provider Dony Biggs MD [phone] -- -- Pended By (on 07/27/2024907) Perla Merino MA -- -- -- Pended By (on 08/23/20241634) Jeana Astudillo MA -- -- -- Linked Charges Charge Code Link Type Charge Type Modifiers None Tracking Links Cosign Tracking Order Transmittal Tracking Chart Review Routing History No routing history on file. ADT-Related Order Information * Lesly Craig - 09/13/2024 3:02 PM EDT Has this been pended to the provider- this is the 3rd request from [facility] for this. * Perla Gomezscott - 08/23/2024 3:18 PM EDT We received a second request on this today * Perla Gomezscott - 07/26/2024 11:45 AM EDT Referral Request: What insurance does the patient have today? Payor: [place] [facility] / Plan: [facility] / Product Type: *No Product type* / Referrals cannot be processed if the insurance is not accurate. If the insurance listed above in red is NO BILLING INFORMATION FOUND FOR THIS ENCOUTNER The patients correct insurance must be obtained and registered in [facility] or their referral can not be processed. Who is calling to request this referral? Drs office If the caller is not the patient, what is their name? not applicable Ask the patient WHO referred them to this specialty: Patient self referred FIRST and LAST NAME of SPECIALIST PATIENT is seeing: Dr Bryan Green npi [phone] What specialty is this? nephrology DIAGNOSIS Patient is being seen for (Not a body part or a procedure): n18.4 Have you seen this SPECIALIST for this PROBLEM/DX before? If YES, when? Yes. Have you checked REVIEW or the APPT DESK to see if this referral has already been done or has visits left? no Is this visit: Follow Up Address of Specialist: [address] [place], [place] [id number] Phone # of Specialist: [phone] Fax #: (if applicable): [phone] Does patient have an appointment scheduled?: yes Date of appointment- (including a retro-request): 08/01/2024 - 6 visits Is this appointment related to: documented in this encounter Plan of Treatment Not on file documented as of this encounter Visit Diagnoses Diagnosis Chronic kidney disease, stage IV (severe) (CMS/HCC V24, CMS/HCC V28)- Primary Chronic kidney disease, Stage IV (severe) documented in this encounter Care Teams Flatwork Washer Relationship Specialty Start Date End Date Dony Biggs MD [address] [place] [id number] PCP - General Internal Medicine 09/12/20 documented as of this encounter
--- OUTSIDE RECORDS SUMMARY | 2024-12-26 19:12 | XMS_ITS ---
Author Name [facility] Organization Unknown Care Team Organization Name Specialty Phone Email Start Date End Da te [facility] Babar Mejiaon Primary Care 01/06/2022 10/18/2023
--- OUTSIDE RECORDS SUMMARY | 2024-12-26 19:12 | XMS_ITS | Clinical Summary ---
Author Organization [facility] Address [address] [place] [address] Phone Care Team Providers Care Regional Dedicated Truck Driver Name Role Phone Babar Biggs MD Primary [...] Cancer Screening: Sigmoidoscopy 2009 Influenza Vaccine (#1) 2024 0, 12/24/2016 Hepatitis B Vaccine Aged Out No longe r eligible based on patient's age to complete this topic Insurance [facility] Care Teams Regional Dedicated Truck Driver Relationship Specialty Start Date End Date Babar Biggs MD PCP - General Internal Medicine 12/03/20
--- OUTSIDE RECORDS SUMMARY | 2024-12-26 19:12 | XMS_ITS | Clinical Summary ---
Author Organization [facility] [address] [facility] lding Address [address] [place] [address] Phone Care Team Providers Care Observer Helper Name Role Phone Dony Biggs MD Primary Care Provider [phone] Allergies Active Allergy Reactions Criticality Noted Date Comments Penicillin G Medium 12/24/2016 Swollen hands Medications CALCIUM CITRATE-VITAMIN D3 ORAL Take 2 Tablets by mouth 2 times daily. Active levothyroxine (SYNTHROID, LEVOTHROID) 137 mcg tablet Take 137 mcg by mouth daily. Active SODIUM BICARBONATE ORAL Take 650 mg by mouth 2 times daily. Active atorvastatin (LIPITOR) 10 mg tablet Take 1 tablet (10 mg total) by mouth 1 (one) time each day. 90 tablet 5 Active Eliquis 2.5 mg tablet TAKE 1 TABLET BY MOUTH TWICE A DAY 180 tablet 5 Active apixaban (Eliquis) 2.5 mg tablet Take 1 tablet (2.5 mg total) by mouth 2 (two) times a day. 180 each 1 5 025 Discontinued Active Problems Problem Noted Date Diagnosed Date [...] 12/20 refused Thyroid cancer, medullary ca rcinoma ([facility] V24, [facility] V28) 11/06/2020 Overview (02/10/2024): Metastatic to left node Surgery 01/19 Vitamin D deficiency 08/29/2020 Papanicolaou smear of cervix with atypical squamous cells of undetermined significance (ASC-US) 08/05/2018 Overview (02/10/2024): History: PAP 07/29/2018: ASCUS; High Risk HPV DNA negative 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 05/31 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 05/31 CKD (chronic kidney disease) stage 4, GFR 15-29 ml/min ([facility] V24, [facility] V28) 04/14/2018 Overview (02/10/2024): [facility] Depression 12/24/2016 Immunizations Immunization Administration Dates Next Due Influenza Quadravalent, MDCK [...] Site/Laterality Comments OTHER SURGICAL HISTORY 1984 PROCEDURE: ME DILATION & CURETTAGE DX&/THER NONOBSTETRIC Medical History Medical History Date Comments CKD (chronic kidney disease) stage 4, GFR 15-29 ml/min ([facility]/HCC V24, CMS/HCC V28) 04/14/2018 DX:CKD (chronic kidney disea se) stage 4, GFR 15-29 ml/min (HCC) Vitamin D deficiency 08/29/2020 DX:Vitamin D deficiency Thyroid cancer, medullary ca rcinoma ([facility]/HCC V24, [facility]/HCC V28) 11/06/2020 DX:Thyroid cancer, medullar y carcinoma [...] Health Maintenance Due Date Last Done Comments Zoster Vaccines (1 of 2) 1979 RSV Immunization Adult Patients (1 - Risk 50-74 years 1-dose series) 2010 Cervical Cancer Screening: Pap Smear 08/05/2019 08/04/2018, 08/04/2018, 07/29/2018 HIV Screening 02/07/2022 Hepatitis C Screening 02/07/2022 Social Influencers of Health Screening 02/07/2022 Breast Cancer Screening 02/20/2023 02/20/2021, 02/05 Depression Screening 03/01/2024 COVID-19 Vaccine ( season) 2024 11/02/2023, 12/26/2021, 11/27/2020, Additional history exists Influenza Vaccine (#1) 2024 , 12/26/2021, 11/22/2020, Additional history exists Cholesterol Screening (Lipid Panel) 09/27/2025 09/27/2020 DTaP,Tdap,and Td Vaccines (2 - Td or Tdap) 09/27/2030 09/27/2020 Colorectal Cancer Screening: Colonoscopy 10/15/2030 10/15/2020 HIB Vaccines Aged Out No longer eligi [...] , abstracted Anatomical Region Laterality Modality Other [facility] Provider HEALTH MAINTENANCE Final Result * Lipid panel (09/27/2020) LDL/HDL Ratio 2 0 - 4 Triglycerides [...] Most Recently Relevant to Health Maintenance Insurance [facility] Care Teams Observer Helper Relationship Specialty Start Date End Date Dony Biggs MD [address] [place] [id number] PCP - General Internal Medicine 09/12/20
== END 2024-12-26 14:47 | disposition home or self-care (01) ==
LOC: HO.WFDLDS 14:46
PROVIDERS: Visit Provider Internal Medicine Nephrology
DX: E61.1 Iron deficiency (principal); N18.4 Chronic kidney disease, stage 4 (severe); D63.1 Anemia in chronic kidney disease; E87.20 Acidosis, unspecified
CPT/HCPCS: 36415; 80051; 82310; 82565; 83970; 84520; 85025

== ENCOUNTER 2024-12-28 10:18 | Outpatient (AMB) | payer BC, SELFPAY ==
--- NOTE | 2024-12-28 10:25 | HO.NEPHOV ---
Vital Signs 12/28/24 10:27 Height 5 ft 3 in Weight 240 lb BMI 42.5 BP 140/60 H Blood Pressure Location Rt brachial Position Sitting Pulse 79 Pulse Source Pulse Oximeter Pulse Oximetry (%) 96 Oxygen Delivery Method Room Air Intake Visit Reasons: 4 mnts-LVM Firer Helper Required: No Accompanied by: Self / Same As Patient Allergies Penicillins Allergy (Verified 12/28/24 10:26) Unknown HPI Comments Details: Carmelina was seen in follow-up of her chronic kidney disease. She is still closely followed up by endocrinology. She denies any uremic symptoms. She denies any chest pain, shortness of breath, paroxysmal nocturnal dyspnea, orthopnea, pedal edema, hematuria, orthostatic symptoms, nausea, vomiting, diarrhea. Her appetite is good. Her weights have been stable. She avoids nonsteroidal anti-inflammatory medications and maintain good hydration. Her blood pressure has been at goal. She has a functioning AV fistula. [facility] Medical History AVF (arteriovenous fistula) Hypertension CKD (chronic kidney disease) stage 4, GFR 15-29 ml/min Surgical History History of thyroidectomy Family History Mother COPD (chronic obstructive pulmonary disease) Social History Alcohol intake: current Comment: Socially Patient Tobacco Use Status: Former Tobacco user Review of Systems Const All systems reviewed & are unremarkable except as noted in HPI and below Physical Exam Vital Signs: Last Vital Signs Pulse 79 12/28/24 10:27 BP 140/60 H 12/28/24 10:27 Pulse Ox 96 12/28/24 10:27 Oxygen Delivery Method Room Air 12/28/24 10:27 BMI result Body Mass Index 42.5 Const General: comfortable and no acute distress Orientation/consciousness: patient oriented x3 HEENT Head: Yes normocephalic Mouth: Normal oral and palatal mucosa present Eyes EOM: EOMs intact bilaterally Neck Neck: Yes supple Resp Auscultation: clear to auscultation bilaterally Cardio Jugular venous distension: no JVD Rate: regular rate GI Palpation (GI): Soft to palpation Auscultation: normal bowel sounds General: Yes no CVA tenderness Back/Spine/Pelvis Back: no CVA tenderness Skin General skin exam: no rashes or lesions noted Neuro General: patient oriented x3 and moves all extremities Extrem General: Yes no pedal edema Results Reviewed Nephrology Results: Hgb, (12.0-16.0) 11.0 g/dl L 12/26/24 WBC, (4.8-10.8) 8.1 X10*3/uL 12/26/24 Plt Count, (160-400) 309 X10*3/uL 12/26/24 Sodium, (135-145) 141 mmol/L 12/26/24 Potassium, (3.3-5.1) 4.6 mmol/L 12/26/24 Chloride, (96-108) 107 mmol/L 12/26/24 Carbon Dioxide, (22-29) 26 mmol/L 12/26/24 BUN, (9-16) 45 mg/dL H 12/26/24 Creatinine, (0.5-1.4) 2.53 mg/dL H 12/26/24 Calcium, (8.4-10.2) 8.7 mg/dL 12/26/24 PTH Intact, (8.7-77.1) 41.1 pg/mL 12/26/24 Assessment & Plan Assessment & Plan (1) CKD (chronic kidney disease) stage 4, GFR 15-29 ml/min: Code(s): N18.4 - Chronic kidney disease, stage 4 (severe) Category: Medical (2) Metabolic acidosis: Code(s): E87.20 - Acidosis, unspecified Category: Medical (3) Anemia in chronic kidney disease (CKD): Code(s): N18.9 - Chronic kidney disease, unspecified; D63.1 - Anemia in chronic kidney disease Category: Medical Qualifiers: Chronic kidney disease stage: stage 4 (severe) Qualified Code(s): N18.4 - Chronic kidney disease, stage 4 (severe); D63.1 - Anemia in chronic kidney disease Plan Carmelina has advanced chronic kidney disease at baseline for a long time. Her renal functions had been stable. She does not have any uremic symptoms. Her blood pressure has gone up marginally and may need medications . Her volume status is optimal. She has a functioning AV fistula. She has anemia of chronic kidney disease. She is on statins. Her metabolic acidosis is well controlled on oral sodium bicarbonate 650 mg daily. I did not make any other medication changes today. Follow-up blood work ordered. Answered all questions Orders: Orders Blood Urea Nitrogen 3 Months D63.1 - Anemia in chronic kidney disease, E87.20 - Acidosis, unspecified, N18.4 - Chronic kidney disease, stage 4 (severe) Calcium 3 Months D63.1 - Anemia in chronic kidney disease, E87.20 - Acidosis, unspecified, N18.4 - Chronic kidney disease, stage 4 (severe) Complete Blood Count Auto Diff 3 Months D63.1 - Anemia in chronic kidney disease, E87.20 - Acidosis, unspecified, N18.4 - Chronic kidney disease, stage 4 (severe) Creatinine 3 Months D63.1 - Anemia in chronic kidney disease, E87.20 - Acidosis, unspecified, N18.4 - Chronic kidney disease, stage 4 (severe) Electrolytes 3 Months D63.1 - Anemia in chronic kidney disease, E87.20 - Acidosis, unspecified, N18.4 - Chronic kidney disease, stage 4 (severe) Coding Level of Care Code Est Pt Level 4 (01998) Diagnoses CKD (chronic kidney disease) stage 4, GFR 15-29 ml/min N18.4 Metabolic acidosis E87.20 Anemia in stage 4 chronic kidney disease N18.4; D63.1 Chronic kidney disease stage: stage 4 (severe)
[2024-12-28 10:27] VITALS: BP 140/60; PULSE 79; O2SAT 96; BMI 42.5
--- OUTSIDE RECORDS SUMMARY | 2024-12-28 12:27 | XMS_ITS | Encounter Summary ---
Author Organization [facility] Address [address] [place] [address] Care Team Providers Care Shoe Polisher Name Role Phone Dony Biggs MD Primary Care Provider [phone] Reason for Visit * Reason Onset Date Comments Referral 07/26/2024 Encounter Details Date Type Department Care Team ([facility] st Contact Info) Description 07/26/2024 Telephone Adult Medicine [facility] [address] [place] [phone] Dony Biggs MD [address] [place] [address] Social History Tobacco Use Types Packs/Day Years [...] not included. Ambulatory referral to Nephrology (Order [id number]) Outpatient Referral Pending Date: 08/23/2024 Department: Adult Medicine [facility] Pended By: Jeana Astudillo MA Authorizing: Dony Biggs MD Pending Order Information This order is pended Future Order Information Expires 07/27/2025 Order History Outpatient Date/Time Action Taken User Additional Information 07/27/24907 Pend Perla Merino MA 08/23/241634 Pend Jeana Astudillo MA Order Details Frequency Duration Priority Order Class None None Routine Outgoing Referral Comments FIRST and LAST NAME of SPECIALIST PATIENT is seeing: Dr Bryan Green npi [id number] What specialty is this? nephrology DIAGNOSIS Patient is being seen for (Not a body part or a procedure): n18.4 Have you seen this SPECIALIST for this PROBLEM/DX before? If YES, when? Yes. Have you checked REVIEW or the APPT DESK to see if this referral has already been done or has visits left? no Is this visit: Follow Up Address of Specialist: [address] [place] [address] Phone # of Specialist: [phone] Fax #: (if applicable): [phone] Associated Diagnoses ICD-10-CM ICD-9-CM Chronic kidney disease, stage IV (severe) (CMS/HCC V24, CMS/HCC V28) - Primary N18.4 585.4 Reprint Order Requisition Ambulatory referral to Nephrology (Order #[id number]) on 08/23/24 Order Provider Info Office phone Pager E-mail Ordering User Jeana Astudillo MA -- -- -- Authorizing Provider Dony Biggs MD [phone] -- -- Pended By (on 07/27/2024907) Perla [...] provider- this is the 3rd request from [facility] for this. * Perla Gomezscott - 08/23/2024 3:18 PM EDT We received a second request on this today * Perla Gomezscott - 07/26/2024 11:45 AM EDT Referral Request: What insurance does the patient have today? Payor: [facility] [employer] [facility] / Plan: [facility] HMO / Product Type: *No Product type* / Referrals cannot be processed if the insurance is not accurate. If the insurance listed above in red is NO BILLING INFORMATION FOUND FOR THIS ENCOUTNER The patients correct insurance must be obtained and registered in [facility] or their referral can not be processed. Who is calling to request this referral? Drs office If the caller is not the patient, what is their name? not applicable Ask the patient WHO referred them to this specialty: Patient self referred FIRST and LAST NAME of SPECIALIST PATIENT is seeing: Dr Bryan Green npi [id number] What specialty is this? nephrology DIAGNOSIS Patient is being seen for (Not a body part or a procedure): n18.4 Have you seen this SPECIALIST for this PROBLEM/DX before? If YES, when? Yes. Have you checked REVIEW or the APPT DESK to see if this referral has already been done or has visits left? no Is this visit: Follow Up Address of Specialist: [address] [place], [place] [id number] Phone # of Specialist: [phone] Fax #: (if applicable): [phone] Does patient have an appointment scheduled?: yes Date of appointment- (including a retro-request): 08/01/2024 - 6 visits Is this appointment related to: documented in this encounter Plan of Treatment Not on file documented as of this encounter Visit Diagnoses Diagnosis Chronic kidney disease, stage IV (severe) (CMS/HCC V24, CMS/HCC V28)- Primary Chronic kidney disease, Stage IV (severe) documented in this encounter Care Teams Shoe Polisher Relationship Specialty Start Date End Date Dony Biggs MD [address] [place] [id number] PCP - General Internal Medicine 09/12/20 documented as of this encounter
--- OUTSIDE RECORDS SUMMARY | 2024-12-28 12:27 | XMS_ITS | Clinical Summary ---
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 Surgery 01/19 Vitamin D deficiency 08/29/2020 Papanicolaou smear of cervix with atypical squamous cells of undetermined significance (ASC-US) 08/05/2018 Overview (02/10/2024): History: PAP 07/29/2018: ASCUS; High Risk HPV DNA negative 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 05/31 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 05/31 CKD (chronic kidney disease) stage 4, GFR 15-29 ml/min ([facility] [place] V24, [facility] [place] V28) 04/14/2018 Overview (02/10/2024): [...] kidney disease) stage 4, GFR 15-29 ml/min ([facility]/HCC V24, CMS/HCC V28) 04/14/2018 DX:CKD (chronic kidney disea se) stage 4, GFR 15-29 ml/min (HCC) Vitamin D deficiency 08/29/2020 DX:Vitamin D deficiency Thyroid cancer, medullary ca rcinoma ([facility]/HCC V24, [facility]/HCC V28) 11/06/2020 DX:Thyroid cancer, medullar y carcinoma [...] , abstracted Anatomical Region Laterality Modality Other [facility] Provider HEALTH MAINTENANCE Final Result * [...] Most Recently Relevant to Health Maintenance Insurance [facility] Care Teams Conference Producer Relationship Specialty Start Date End Date Dony Biggs MD [address] [place] [id number] PCP - General Internal Medicine 09/12/20
--- OUTSIDE RECORDS SUMMARY | 2024-12-28 12:27 | XMS_ITS | Clinical Summary ---
Author Organization [facility] Address [address] [place] [address] Phone Care Team Providers Care Pneumatic Tube Fitter Name Role Phone Babar Biggs MD Primary [...] patient's age to complete this topic Insurance [facility] Care Teams Pneumatic Tube Fitter Relationship Specialty Start Date End Date Babar Biggs MD PCP - General Internal Medicine 12/03/20
== END 2024-12-28 10:54 | disposition home or self-care (01) ==
LOC: HO.HKAS 10:18
PROVIDERS: PCP Pediatrics; Visit Provider Internal Medicine Nephrology
DX: N18.4 Chronic kidney disease, stage 4 (severe) (principal); E87.20 Acidosis, unspecified; D63.1 Anemia in chronic kidney disease
CPT/HCPCS: 99214